=== PATIENT | female | born 1970 | race Caucasian/White ===

== ENCOUNTER 2017-08-10 18:11 | Emergency (ER) | payer OTHER ==
[2017-08-10 18:27] VITALS: BP 101/61
--- NOTE | 2017-08-10 20:01 | UC ---
Shoulder Pain HPI - HPI Summary HPI Summary: patient states she came from Dr. Stokes's office for evaluation of left shoulder pain. She was scheduled to have an MRI of the shoulder. Left shoulder pain started 3 weeks ago after she was lifting weights. Pain is in shoulder radiating to chest, elbow and now 4th and 5th digits. She denies fall or trauma. States she has had c2-c3 spine fusion surgery in the past and has constant pain on shoulders bilaterally for many years. She states she came to because she had not noticed a bulging in her left elbow and feels it is connected with tingling sensation of her fingers. She dislikes taking NSAIDS due to gastric side effects so she has not taken any pain medication. - History of Current Complaint Chief Complaint: UCUpperExtremity Stated Complaint: ELBOW SWELLING,FINGERS OF L HAND NUMB Time Seen by Provider: 08/10/17 18:43 Hx Obtained From: Patient Hx Last Menstrual Period: 2014 ?: No Onset/Duration: Gradual Onset, Lasting Weeks Timing: Constant Severity Initially: Moderate Severity Currently: Moderate Pain Intensity: 7 Character: Aching Aggravating Factor(s): Movement, Lifting Alleviating Factor(s): Rest, Elevation Associated Signs And Symptoms: Positive: Negative - Risk Factors Non-Orthopedic Risk Factor: Negative DVT Risk Factors: Smoking Septic Arthritis Risk Factor: Negative - Allergies/Home Medications Allergies/Adverse Reactions: Allergies Allergy/AdvReac Type Severity Reaction Status Date / Time erythromycin base Allergy Diarrhea Verified 08/10/17 18:28 PMH/Surg Hx/FS Hx/Imm Hx Previously Healthy: Yes - Surgical History Surgical History: Yes Surgery Procedure, Year, and Place: antierior fusion of c2-c3 1999. BACK SURGERY-2013 - Family History Known Family History: Positive: None - Social History Alcohol Use: Occasionally Substance Use Type: None Smoking Status (MU): Heavy Every Day Tobacco Smoker Amount Used/How Often: 1/2 PPD Review of Systems Musculoskeletal: Arthralgia All Other Systems Reviewed And Are Negative: Yes Physical Exam Triage Information Reviewed: Yes Appearance: Well-Appearing, No Pain Distress Vital Signs: Initial Vital Signs Temp 98.0 F 08/10/17 18:23 Pulse 86 08/10/17 18:23 Resp 12 08/10/17 18:23 BP 101/61 08/10/17 18:23 Pulse Ox 97 08/10/17 18:23 Vital Signs Reviewed: Yes Eyes: Positive: Conjunctiva Clear ENT: Positive: Hearing grossly normal Neck: Positive: Supple, Nontender, No Lymphadenopathy Respiratory: Positive: Chest non-tender, Lungs clear, Normal breath sounds, No respiratory distress Cardiovascular: Positive: RRR, No Murmur, Pulses Normal, Brisk Capillary Refill Abdomen Description: Positive: Nontender Musculoskeletal: Positive: No Edema, Other: - empty can test positive, Gil positive, left shoulder. tender on medial epycondyle of left arm. Supraspinatus positive. Neck has ROM preserved, spurling test negative Neurological: Positive: Muscle Tone Normal Shoulder Course/Dx - Course Course Of Treatment: patient with possible epicondylitis of left elbow, follow up with orthopedic surgery and PCP for follow up management. EKG was NSR, no ST- T wave changes. Discussed with patient smoking cessation - Differential Dx/Diagnosis Provider Diagnoses: Left shoulder pain. Left medial epicondylitis. Tobacco abuse Discharge - Sign-Out/Discharge Documenting (check all that apply): Discharge - Discharge Plan Condition: Stable Disposition: HOME Prescriptions: Gabapentin CAP(*) [Neurontin 100 mg CAP(*)] 100 mg PO TID #60 cap tiZANidine TAB* [Zanaflex TAB*] 2 mg PO BEDTIME PRN #30 tab PRN Reason: Pain Patient Education Materials: Gabapentin (By mouth), Tizanidine (By mouth), How to Stop Smoking (ED), Rotator Cuff Injury (ED) Referrals: Jerome Mendieta MD [Primary Care Provider] - Additional Instructions: discussed with patient, she states she started with chest pain the moment she lifted weights and it has been achy, constant and consistent. Instructed patient to go to ED if nature of CP changes, if diaphoresis, dizziness, Nausea vomiting or different irradiation start. To f/u with Orthopaedic surgery for MRI left shoulder and f/u with PCP. - Billing Disposition and Condition Condition: STABLE Disposition: HOME
== END 2017-08-10 19:58 | disposition home or self-care (01) ==
LOC: UCEAST 18:11
DX: M25.512 Pain in left shoulder (principal); M77.02 Medial epicondylitis, left elbow; Z88.1 Allergy status to other antibiotic agents; F17.210 Nicotine dependence, cigarettes, uncomplicated
CPT/HCPCS: 93005; 99212; G0463

== ENCOUNTER 2018-10-13 11:40 | Emergency (ER) | payer SELFPAY ==
[2018-10-13 11:49] VITALS: BP 99/54
[2018-10-13] MEDS ORDERED: HYDROcodone/ACETAMIN 5-325 MG* 1 TAB PO ONE (12:08)
[2018-10-13] MEDS ORDERED: Ondansetron ODT TAB* 4 MG PO ONE (12:09)
--- NOTE | 2018-10-13 12:44 | UC ---
Lower Extremity/Ankle HPI - HPI Summary HPI Summary: Injured right ankle doing garden work--wearing sandals, tugging full weight to pull a vine out of a tree, fell backwards and heard a pop. Immediate pain and swelling with inability to weight bear. Blacked out for a few moments. - History of Current Complaint Chief Complaint: UCLowerExtremity Stated Complaint: RT ANKLE INJURY Time Seen by Provider: 10/13/18 12:08 Hx Obtained From: Patient, Family/Skilled Laborer - here with spouse Hx Last Menstrual Period: 2014 Onset/Duration: Sudden Onset, Lasting Hours Pain Intensity: 10 Aggravating Factor(s): Standing - cannot weight bear Alleviating Factor(s): Elevation, Ice Able to Bear Weight: No - Risk Factors Gout Risk Factors: Negative DVT Risk Factors: Negative Septic Arthritis Risk Factor: Negative - Allergies/Home Medications Allergies/Adverse Reactions: Allergies Allergy/AdvReac Type Severity Reaction Status Date / Time erythromycin base Allergy Diarrhea Verified 10/13/18 11:49 Home Medications: Home Medications raNITIdine HCl [Heartburn Relief] 1 tab PO DAILY 10/13/18 [History Confirmed 01/23] PMH/Surg Hx/FS Hx/Imm Hx Previously Healthy: Yes Neurological History: Other - history of cervical spine injury - Surgical History Surgical History: Yes Surgery Procedure, Year, and Place: antierior fusion of c2-c3 1999. 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 Lives: With Family Alcohol Use: None Substance Use Type: None Smoking Status (MU): Heavy Every Day Tobacco Smoker Amount Used/How Often: 1/2 PPD Household Exposure Type: Cigarettes Review of Systems All Other Systems Reviewed And Are Negative: Yes Neurovascular: Positive: Decreased Sensation - right foot Musculoskeletal: Positive: Arthralgia Is Patient Immunocompromised?: No Physical Exam Triage Information Reviewed: Yes Appearance: Well-Appearing, Pain Distress - moderately severe Vital Signs: Initial Vital Signs Temp 96.5 F 10/13/18 11:45 Pulse 75 10/13/18 11:45 Resp 18 10/13/18 11:45 BP 99/54 10/13/18 11:45 Pulse Ox 100 10/13/18 11:45 Eye Exam: Normal Respiratory: Positive: Lungs clear, Normal breath sounds Cardiovascular: Positive: RRR, No Murmur Musculoskeletal Exam: Other - right ankle with tense moderate swelling both lateral and medial malleoli, with severe decreased range of motion of the right ankle. Neurological: Positive: Alert, Muscle Tone Normal Psychological Exam: Normal - Initially tearful and anxious. Skin Exam: Normal Diagnostics - Radiology No standard instances Radiology Interpretation Completed By: Radiologist - Dr. Tran: displaced bimalleolar fracture. Lower Extremity Course/Dx - Course Course Of Treatment: splint, crutches, analgesics with follow up tomorrow by Dr. Palacio. Splinting done by Rivka Banda. - Differential Dx/Diagnosis Differential Diagnosis/HQI/PQRI: Fracture (Closed), Sprain Provider Diagnosis: Bimalleolar fracture of right ankle - Physician Notifications Discussed Patient Care With: Clara Palacio - communication via SARA Landin Discharge - Sign-Out/Discharge Documenting (check all that apply): Patient Departure All imaging exams completed and their final reports reviewed: Yes - Discharge Plan Condition: Fair Disposition: HOME Prescriptions: Hydrocodone/Acetaminophen [Hydrocodone-Acetamin 5-325 mg] 2 each PO Q6H PRN #20 tablet MDD 8 PRN Reason: Pain - Moderate To Severe Patient Education Materials: Ankle Fracture (ED), Crutch Instructions (ED) Referrals: Jerome Mendieta MD [Primary Care Provider] - Clara Palacio MD [Medical Doctor] - Additional Instructions: Use Crutches and maintain non-weight bearing. Keep your leg elevated and use ice regularly to decrease swelling. Call Dr. Palacio in the morning to arrange an evaluation of the ankle. Use ibuprofen 800mg three times daily with food for relief of pain, using additional hydrocodone 1 to 2 tablets as needed for pain control. - Billing Disposition and Condition Condition: FAIR Disposition: Home
== END 2018-10-13 13:59 | disposition home or self-care (01) ==
LOC: UCEAST 11:40
DX: S82.841A Displaced bimalleolar fracture of right lower leg, initial encounter for closed fracture (principal); X58.XXXA Exposure to other specified factors, initial encounter; Y93.H2 Activity, gardening and landscaping; Y92.017 Garden or yard in single-family (private) house as the place of occurrence of the external cause; Y99.8 Other external cause status; F17.210 Nicotine dependence, cigarettes, uncomplicated; Z98.1 Arthrodesis status
CPT/HCPCS: 99213; A9270-GY; G0463

== ENCOUNTER 2018-10-17 09:30 | Day surgery (SDC) | payer SELFPAY ==
[~2018-10-17 09:30] MED LIST: Acetaminophen TAB* 325 MG PO ONE; Buffered Lidocaine 1% SYRIN* 1 ML/SYRINGE INTRADERM ONE; Gabapentin CAP(*) 300 MG PO ONE; Lactated Ringers 1000 ML Bag* 1,000 ML IV SCH
[2018-10-17] MEDS ORDERED: Gabapentin CAP(*) 300 MG ONE (09:53)
[2018-10-17] MEDS ORDERED: ceFAZolin 2 GM PREMIX in ORs 2 GM/50 ML BAG ONE (09:53)
[2018-10-17] MEDS ORDERED: Acetaminophen TAB* 325 MG ONE (09:53)
[2018-10-17] MEDS ORDERED: Buffered Lidocaine 1% SYRIN* 1 ML/SYRINGE INTRADERM ONE (09:54)
[2018-10-17] MEDS ORDERED: fentaNYL* 50 MCG/ML 2 ML VIAL (100 MCG VIAL) IV PRN (10:55)
[2018-10-17] MEDS ORDERED: Naloxone* 0.4 MG/ML 1 ML VIAL IV PRN (10:57)
[2018-10-17] MEDS ORDERED: fentaNYL* 50 MCG/ML 2 ML VIAL (100 MCG VIAL) ONE ×2 (10:57→11:41)
[2018-10-17] MEDS ORDERED: Acetaminophen TAB* 325 MG PO PRN (10:57)
[2018-10-17] MEDS ORDERED: HYDROmorphone INJ1* 1 MG/ML SYRINGE IV PRN (10:57)
[2018-10-17] MEDS ORDERED: diPHENhydraMINE IV* 50 MG/ML 1 ml VIAL (BENADRYL) IV PRN (10:57)
[2018-10-17] MEDS ORDERED: PROCHLORPERAZINE INJ 5 MG/ML 2 ML VIAL IV PRN (10:57)
[2018-10-17] MEDS ORDERED: Levalbuterol 0.63MG/3ML NEB* UNIT OF USE INH PRN (10:57)
[2018-10-17] MEDS ORDERED: DiMENhydriNATE IV* 50 MG/ML VIAL IV PUSH PRN (10:57)
[2018-10-17] MEDS ORDERED: HYDROcodone/ACETAMIN 5-325 MG* 1 TAB PO PRN ×2 (10:57)
[2018-10-17] MEDS ORDERED: Scopolamine 1.5 mg* PATCH TRANSDERM PRN (10:57)
[2018-10-17] MEDS ORDERED: Ondansetron INJ* 2 MG/ML VIAL IV PRN (10:57)
[2018-10-17] MEDS ORDERED: Midazolam* 1 MG/ML 2 ML VIAL (2 MG) ONE (11:41)
[2018-10-17] MEDS ORDERED: Famotidine IV* 10 MG/ML 2 ML (20 mg) ONE (11:58)
[2018-10-17] MEDS ORDERED: Ropivacaine (OR use only) 2 MG/ML 10 ML ONE (11:59)
[2018-10-17] MEDS ORDERED: ROPIVACAINE 5 MG/ML 30 ML BTL (0.5%) ONE (11:59)
[2018-10-17] MEDS ORDERED: Bupivacaine 0.25% SDV PF* 10 ML VIAL INJ ONE ×2 (12:07→13:44)
[2018-10-17] MEDS ORDERED: Ondansetron INJ* 2 MG/ML VIAL ONE (12:35)
[2018-10-17] MEDS ORDERED: Propofol* 10 MG/ML 20 ML BTL ONE (12:35)
[2018-10-17] MEDS ORDERED: Lidocaine 2% PF * 5 ML VIAL ONE (12:35)
[2018-10-17] MEDS ORDERED: Scopolamine 1.5 mg* PATCH ONE (12:35)
[2018-10-17] MEDS ORDERED: Dexamethasone IV* 4 MG/ML 1 ML (4 MG) ONE (12:35)
[2018-10-17] MEDS ORDERED: Ketorolac INJ* 30 MG/ML 1 ML VIAL ONE (12:35)
[2018-10-17 15:46] VITALS: BP 123/69
--- NOTE | 2018-10-17 18:40 | OP ---
Operative Report - Blank - Operative Report Date of Operation: 10/17/18 Note: PATIENT: Niurka Tony DATE OF : 1970 DATE OF SURGERY: 10/17/2018 SURGEON: Robinson Arevalo MD SENIOR DATASTAGE DEVELOPER: SARA Geller, whos assistance was necessary for positioning, retraction, help with instrumentation, and closure. ANESTHESIOLOGIST: Dr. Merritt PREOPERATIVE DIAGNOSIS: Right trimalleolar ankle fracture POSTOPERATIVE DIAGNOSIS: Right trimalleolar ankle fracture OPERATION: 1. Right trimalleolar ankle fracture open reduction and internal fixation of medial and lateral malleoli. 2. Stress views performed by surgeon utilizing fluoroscopy under anesthesia. ANESTHESIA: General + nerve block IMPLANTS: Arthrex ankle fracture set plate and screws TOURNIQUET TIME: Less than 2 hours with a well-padded thigh tourniquet at 250mmHg SPECIMENS: none ESTIMATED BLOOD LOSS: minimal COMPLICATIONS: none STATUS: Stable from the operating room to the recovery room and then home. INDICATIONS FOR PROCEDURE: Niurka sustained a right trimalleolar ankle fracture with displacement. CT scan revealed comminution of both the distal fibula fractures, as well as at the medial malleolus. Both operative and non operative treatment alternatives were reviewed. Further, the nature and risks of surgery were reviewed in careful detail, in the office as well as the pre-operative holding area. Our discussions regarding the risks of surgery included, but were not limited to, infection, wound problems, nerve injury, neuroma, RSD, persistent symptoms, blood clot, nonunion, malunion, post-traumatic arthritis, hardware failure, failure of the surgery, and even the remote chance of catastrophic complication , including loss of limb. DESCRIPTION OF PROCEDURE: The patient was seen in the preoperative holding unit and informed written consent was obtained. The appropriate extremity was marked. The patient was then brought to the operating room and carefully positioned on the operating room table. Anesthesia was induced. All bony prominences were padded with great care. A well-padded thigh tourniquet was placed. A chlorhexidine based pre- scrub was performed followed by a chloraprep prep and drape in standard sterile fashion. A surgical safety pause was then conducted in which we confirmed the appropriate patient, extremity, planned procedure, availability of equipment, indication and administration of prophylactic antibiotics, and DVT prophylaxis in the form of a compression boot on the non-surgical extremity. I began with Esmarch exsanguination of the limb and inflated the tourniquet. I then utilized a laterally based incision overlying the distal fibula. Great care was taken to protect the superficial peroneal nerve, which was not visualized within the field of view. I dissected down through the soft tissue layers to expose the distal fibula. I then exposed the fracture planes. Fracture hematoma was removed. I gained a reduction utilizing a pointed reduction clamp. I placed an Arthrex anatomic distal fibula plate laterally and then confirmed the reduction and the position of the plate fluoroscopically. I placed screws to hold the plate to the bone. The provisional fixation was removed and then I again confirmed fluoroscopically the appropriate position of the plate and screw lengths. There is a large butterfly fragment that I was unable to capture with the screws. I used #1 Vicryl in a cerclage fashion to suture this to the remaining fibula. At this point, I provisionally tacked the lateral incision closed while I turned my attention medially. I made an approximately 8cm incision over the medial malleolus. The fractures were exposed and hematoma was removed. There is extensive comminution, especially at the anterior shoulder of the ankle joint. A few small pieces of bone and cartilage were removed from inside the joint. Reduction of the medial malleolar fractures were obtained with a pointed reduction clamp and K wires. I placed guidewires for 4.0 mm cannulated screws. I confirmed the position of the guidewires fluoroscopically. I then overdrilled one of the wires and placed a partially threaded 4.0 mm cannulated screw. Because of the blowout at the medial wall, I then placed a buttress plate that was contoured to the medial malleolus. I held this to the bone with 3.5 mm cortical screws. This held the fractures nicely reduced. At this point, I performed a stress fluoroscopic examination. I utilized a Cotton test, as well as an external rotation stress test, to evaluate the distal tib-fib syndesmosis. There was no instability appreciated through the syndesmosis. I also performed a posteriorly directed stress test and there was no posterior instability appreciated, so I elected to treat the posterior malleolar fracture in a closed manner. At this point, we irrigated copiously and then closed in layers meticulously utilizing 3-0 Monocryl for the deep and subdermal layers and 3-0 nylon for the skin. A sterile dressing was then applied followed by a splint with the ankle in a neutral position. The patient was then awakened from anesthesia and transferred to the recovery room in stable condition. There were no complications. All needle and sponge counts were correct at the end of the case. ATTESTATION: I attest I was present and scrubbed and performed the critical portions of the procedure myself. POSTOPERATIVE PLAN: The postop plan is for [id number] for an anticipated duration of 6 weeks. Follow-up will be in 2 weeks. At that time we will likely transition into a short-leg cast.
[2018-10-20] MEDS ORDERED: Scopolamine PATCH Remove* 1 NOTE MISC PATCH OFF ONE (10:58)
== END 2018-10-17 16:09 | disposition home or self-care (01) ==
LOC: OR 09:30
PROVIDERS: ATTEND Orthopaedic Surgery
DX: S82.851A Displaced trimalleolar fracture of right lower leg, initial encounter for closed fracture (principal); G89.18 Other acute postprocedural pain; F17.210 Nicotine dependence, cigarettes, uncomplicated; K21.9 Gastro-esophageal reflux disease without esophagitis; E03.9 Hypothyroidism, unspecified; W19.XXXA Unspecified fall, initial encounter; Y92.9 Unspecified place or not applicable
CPT/HCPCS: 76000; A9270-GY; C1713; J0690; J1100; J1885; J2250; J2405; J2704; J2795; J3010; J3490

== ENCOUNTER 2018-10-24 13:46 | Emergency (ER) | payer SELFPAY ==
[2018-10-24] MEDS ORDERED: Morphine 10 MG/ML VIAL (1 ml) IV ONE (13:52)
--- NOTE | 2018-10-24 13:53 | UC ---
General HPI - HPI Summary HPI Summary: Here with - acute onset of right sided chest pain and SOB Had surgery on right foot for three fx by Dr. Zepeda 1 week ago. Has been doing relatively well. Weaning herself off the narcotics. DId not take any last night. Was having issues with constipation . Had a BM this AM, feeling pretty well when she became acutely SOB with right sided chest pain. drove her here to urgent care for further evaluation Been nausea since surgery. Diarrhea this AM. States she also noticed worsening numbness in RLE. Was having numbness all along that ortho was aware of but this numbess was worse. PMHx: None Is a smoker. NOt sure if she is taking aspirin. Not on her med rec. - History of Current Complaint Stated Complaint: L LEG PAIN Time Seen by Provider: 10/24/18 13:51 Hx Last Menstrual Period: 2014 - Allergy/Home Medications Allergies/Adverse Reactions: Allergies Allergy/AdvReac Type Severity Reaction Status Date / Time erythromycin base Allergy Severe Diarrhea, Verified 10/24/18 14:02 vomit PMH/Surg Hx/FS Hx/Imm Hx Previously Healthy: Yes - Surgical History Surgical History: Yes Surgery Procedure, Year, and Place: anterior fusion of C2-C3 1999. laminectomy BACK SURGERY-2013 - Family History Known Family History: Positive: None - Social History Alcohol Use: None Substance Use Type: None Smoking Status (MU): Heavy Every Day Tobacco Smoker Amount Used/How Often: 1/2-3/4 PPD 30 years off and on Household Exposure Type: Cigarettes Review of Systems All Other Systems Reviewed And Are Negative: Yes Respiratory: Positive: Shortness Of Breath Cardiovascular: Positive: Palpitations, Chest Pain Physical Exam Triage Information Reviewed: Yes Appearance: Ill-Appearing Vital Signs Reviewed: Yes ENT: Positive: Normal ENT inspection Neck: Positive: Nontender Respiratory: Positive: Lungs clear, Normal breath sounds, Other: - diminished breath sounds Cardiovascular: Positive: RRR, Other: - soft systolic murmur Abdomen Description: Positive: Nontender Musculoskeletal: Positive: Other: - wrap and splint on RLE - able to move toes, sensation intact Diagnostics - EKG Cardiac Rate: NL Course/Dx - Course Course Of Treatment: This is a 48 yr old who is post op 10/17 from RLE ankle repair who presents with acute onset of SOB and CP EKG: Nonspecifc twave flattening NSR ASA 324 mg PO x 1 Morphine 2 mg iV x 1 Patient vital's stable Patient being transported to [facility] ED via [place] Sign out given to Elisa at [facility] ED - Diagnoses Provider Diagnosis: Chest pain Discharge - Sign-Out/Discharge Documenting (check all that apply): Patient Departure All imaging exams completed and their final reports reviewed: No Studies - Discharge Plan Condition: Fair Disposition: TRANS HIGHER LVL OF CARE FAC Referrals: Jerome Mendieta MD [Primary Care Provider] - Additional Instructions: Patient being transported directly to [facility] ED via EMS - Billing Disposition and Condition Condition: FAIR Disposition: Trans Higher Lvl of Care Fac
[2018-10-24] MEDS ORDERED: Aspirin 81 mg CHEW TAB* 81 MG TAB.CHEW PO ONE (14:00)
[2018-10-24 14:02] VITALS: BP 129/70
== END 2018-10-24 14:12 | disposition short-term general hospital (02) ==
LOC: UCEAST 13:46
DX: R07.9 Chest pain, unspecified (principal); F17.210 Nicotine dependence, cigarettes, uncomplicated; F11.20 Opioid dependence, uncomplicated
CPT/HCPCS: 93005; 96374; 99213; A9270-GY; G0463; J2270

== ENCOUNTER → 2018-10-24 14:32 | Emergency (ER) | payer SELFPAY ==
[~2018-10-24 14:32] MED LIST changes: -Acetaminophen TAB* 325 MG PO ONE; -Buffered Lidocaine 1% SYRIN* 1 ML/SYRINGE INTRADERM ONE; -Gabapentin CAP(*) 300 MG PO ONE; +Iohexol 350* (CONTRAST) 500 ML MDV IV ONE; -Lactated Ringers 1000 ML Bag* 1,000 ML IV SCH
[2018-10-24 14:58] LABS: ABS Basophils 0.1 10^3/ul (0-0.2); ABS Eosinophils 0.2 10^3/ul (0-0.6); ABS Lymphocytes 1.7 10^3/ul (1.0-4.8); ABS Monocytes 0.7 10^3/ul (0-0.8); ABS Neutrophils 8.6 10^3/ul (1.5-7.7); Eosinophil % 1.6 %; Hematocrit 40 % (35-47); Hemoglobin 13.9 g/dL (12.0-16.0); Lymphocyte % 15.4 %; Mean Corpuscular HGB Conc 35 g/dL (31-36); Mean Corpuscular Hemoglobin 32 pg (27-31); Mean Corpuscular Volume 91 fL (80-97); Mean Platelet Volume 7.7 fL (7.4-10.4); Platelet Count 287 10^3/uL (150-450); Red Blood Count 4.41 10^6 /uL (3.70-4.87); Red Cell Distribution Width 13 % (10-15); White Blood Count 11.3 10^3/uL (3.5-10.8)
[2018-10-24 15:15] LABS: Albumin 3.9 g/dL (3.2-5.2); Albumin/Globulin Ratio 1.4 (1-3); Calcium 9.4 mg/dL (8.6-10.3); EGFR African American 91.9 (>60); EGFR Non-African American 75.9 (>60); Globulin 2.8 g/dL (2-4); Potassium 3.9 mmol/L (3.5-5.0); Total Bilirubin 0.6 mg/dL (0.2-1.0); Total Protein 6.7 g/dL (6.4-8.9)
--- NOTE | 2018-10-24 16:22 | ED ---
HPI Chest Pain - HPI Summary HPI Summary: The patient is a 48 y/o F presenting to [facility] from Urgent Care accompanied by with a chief complaint of pain, tingling, and a burning sensation in the RLE with gradual worsening over the last week and new onset of dull CP today. She reports that she had surgery at [facility] one week ago on the right ankle with placement of plates for a triple fracture after falling while removing anika from a tree. Over the last week, she has had gradual worsening of tingling throughout the leg and foot on the right and occasionally in the left, and a burning sensation near the toes with possible leakage and bruising on the leg. She has been told to leave the dressing and wrapping on the foot until her follow up appointment on 11/01, and she has tried to call the orthopedic office to move the appointment or be evaluated sooner, but she was told to wait for the scheduled appointment, not apply pressure to the ankle for six weeks, and keep the ankle elevated as much as possible with icing for minimizing swelling. Currently, her pain is rated 6/10 in severity. Her symptoms are aggravated by movement despite taking Oxycodone for the pain. She also uses marijuana for pain. She additionally c/o there is intermittent numbness in the right hand. She denies fever, chills, erythema of eyes, sore throat, SOB, cough, abdominal pain, N/V, dysuria, hematuria, edema, rash, and dizziness. Hx of arthritis. Surgical hx of fusion of C2-C3 and laminectomy without complications. Current heavy everyday smoker, no EtOH, marijuana use. - History of Current Complaint Chief Complaint: EDChestPainROMI Time Seen by Provider: 10/24/18 14:38 Hx Obtained From: Patient Hx Last Menstrual Period: 2014 Onset/Duration: Started Days Ago - one week, Still Present Timing: Lasting Days Initial Severity: Mild Current Severity: Moderate Pain Intensity: 6 Pain Scale Used: 0-10 Numeric Chest Pain Location: Diffuse Chest Pain Radiates: No Character: Dull/Aching Aggravating Factor(s): Movement Alleviating Factor(s): Nothing Associated Signs and Symptoms: Positive: Chest Pain, Numbness - in right hand, Tingling - in RLE and occasionally LLE, Other: - RLE pain, bruising in the right leg, burning sensation of right foot, possible leakage at surgical site; NEGATIVE: erythema of eyes, sore throat, dysuria, hematuria, edema, rash. Negative: Dizziness, Shortness of Breath, Fever, Chills, Nausea, Cough, Abdominal Pain, Vomiting - Allergy/Home Medications Allergies/Adverse Reactions: Allergies Allergy/AdvReac Type Severity Reaction Status Date / Time erythromycin base Allergy Severe Diarrhea, Verified 10/24/18 14:02 vomit PMH/Surg Hx/FS Hx/Imm Hx Endocrine/Hematology History: Denies: Hx Diabetes, Hx Thyroid Disease Cardiovascular History: Denies: Hx Hypertension Respiratory History: Denies: Hx Asthma, Hx Chronic Obstructive Pulmonary Disease (COPD) GI History: Reports: Hx Gastroesophageal Reflux Disease Denies: Hx Ulcer Musculoskeletal History: Reports: Hx Arthritis Sensory History: Reports: Hx Contacts or Glasses - glasses for reading or driving Denies: Hx Hearing Aid Opthamlomology History: Reports: Hx Contacts or Glasses - glasses for reading or driving - Cancer History Hx Chemotherapy: No - Surgical History Surgery Procedure, Year, and Place: anterior fusion of C2-C3 1999. laminectomy BACK SURGERY-2013 Hx Anesthesia Reactions: No Infectious Disease History: No Infectious Disease History: Denies: Hx Clostridium Difficile, Hx Hepatitis, Hx Human Immunodeficiency Virus (HIV), Hx of Known/Suspected MRSA, Hx Shingles, Hx Tuberculosis, Hx Known/ Suspected VRE, Traveled Outside the [place] in Last 30 Days - Family History Known Family History: Positive: Other - alcoholism - Social History Alcohol Use: None Hx Substance Use: Yes Substance Use Type: Reports: Marijuana Hx Tobacco Use: Yes Smoking Status (MU): Heavy Every Day Tobacco Smoker Amount Used/How Often: 1/2-3/4 PPD 30 years off and on Review of Systems Negative: Fever, Chills Negative: Erythema Negative: Sore Throat Positive: Chest Pain Negative: Shortness Of Breath, Cough Negative: Abdominal Pain, Vomiting, Nausea Negative: dysuria, hematuria Positive: Myalgia - RLE pain. Negative: Edema Positive: Bruising - RLE near surgical dressing, Other - possible leakage at surgical site. Negative: Rash Neurological: Other - POSITIVE: burning sensation on right foot; NEGATIVE: dizziness Positive: Paresthesia - mostly RLE but occasionally LLE, Numbness - in right foot All Other Systems Reviewed And Are Negative: Yes Physical Exam - Summary Physical Exam Summary: Constitutional: Well-developed, Well-nourished, Alert. (-) Distressed Skin: Warm, Dry HENT: Normocephalic; Atraumatic Eyes: Conjunctiva normal Neck: Musculoskeletal ROM normal neck. (-) JVD, (-) Stridor, (-) Tracheal deviation Cardio: Rhythm regular, rate normal, Heart sounds normal; Intact distal pulses; The pedal pulses are 2+ and symmetric. Radial pulses are 2+ and symmetric. (-) Murmur Pulmonary/Chest wall: Effort normal. (-) Respiratory distress, (-) Wheezes, (-) Rales Abd: Soft, (-) tenderness, (-) Distension, (-) Guarding, (-) Rebound Musculoskeletal: Movement of the toes is completely intact, Dorsalis pedis pusles intact, Skin perfusion normal, No significant edema Lymph: (-) Cervical adenopathy Neuro: Alert, Oriented x3 Psych: Mood and affect Normal Triage Information Reviewed: Yes Vital Signs On Initial Exam: Initial Vitals Temp Pulse Resp BP Pulse Ox 97.4 F 77 18 136/71 98 10/24/18 14:34 10/24/18 14:34 10/24/18 14:34 10/24/18 14:34 10/24/18 14:34 Vital Signs Reviewed: Yes Diagnostics - Vital Signs Vital Signs Temp Pulse Resp BP Pulse Ox 10/24/18 15:42 69 14 103/64 96 10/24/18 15:12 72 17 121/67 92 10/24/18 15:00 68 20 94 10/24/18 14:42 79 25 136/71 99 10/24/18 14:41 78 17 98 10/24/18 14:34 97.4 F 77 18 136/71 98 - Laboratory Lab Results: Lab Results 10/24/18 10/24/18 10/24/18 Range/Units 14:52 14:52 14:52 WBC 11.3 H (3.5-10.8) 10^3/uL RBC 4.41 (3.70-4.87) 10^6 /uL Hgb 13.9 (12.0-16.0) g/dL Hct 40 (35-47) % MCV 91 (80-97) fL MCH 32 H (27-31) pg MCHC 35 (31-36) g/dL RDW 13 (10-15) % Plt Count 287 (150-450) 10^3/uL MPV 7.7 (7.4-10.4) fL Neut % (Auto) 76.5 % Lymph % (Auto) 15.4 % [place] % (Auto) 5.9 % Eos % (Auto) 1.6 % Baso % (Auto) 0.6 % Absolute Neuts (auto) 8.6 H (1.5-7.7) 10^3/ul Absolute Lymphs (auto) 1.7 (1.0-4.8) 10^3/ul Absolute Monos (auto) 0.7 (0-0.8) 10^3/ul Absolute Eos (auto) 0.2 (0-0.6) 10^3/ul Absolute Basos (auto) 0.1 (0-0.2) 10^3/ul Absolute Nucleated RBC 0.0 10^3/ul Nucleated RBC % 0.0 Sodium 139 (135-145) mmol/L Potassium 3.9 (3.5-5.0) mmol/L Chloride 107 (101-111) mmol/L Carbon Dioxide 23 (22-32) mmol/L Anion Gap 9 (2-11) mmol/L BUN 24 (6-24) mg/dL Creatinine 0.80 (0.51-0.95) mg/dL Est GFR ( Amer) 91.9 (>60) Est GFR (Non-Af Amer) 75.9 (>60) BUN/Creatinine Ratio 30.0 H (8-20) Glucose 119 H (70-100) mg/dL Lactic Acid 1.1 (0.5-2.0) mmol/L Calcium 9.4 (8.6-10.3) mg/dL Total Bilirubin 0.60 (0.2-1.0) mg/dL AST 18 (13-39) U/L ALT 27 (7-52) U/L Alkaline Phosphatase 117 H (34-104) U/L Troponin I 0.00 (<0.04) ng/mL Total Protein 6.7 (6.4-8.9) g/dL Albumin 3.9 (3.2-5.2) g/dL Globulin 2.8 (2-4) g/dL Albumin/Globulin Ratio 1.4 (1-3) Result Diagrams: 10/24/18 14:52 10/24/18 14:52 Lab Statement: Any lab studies that have been ordered have been reviewed, and results considered in the medical decision making process. - Radiology CXR Radiology Interpretation Completed By: Radiologist Summary of Radiographic Findings: No evidence for acute intrathoracic disease. ED physician has reviewed this radiology report. - CT Chest/Thorax CTA CT Interpretation Completed By: Radiologist Summary of CT Findings: 1. No CT of evidence of pulmonary embolism. 2. There is a small amount of pleural base atelectasis at the posterior dependent right lower lobe. 3. Chronic findings are consistent with emphysema. - EKG 1446 Cardiac Rate: NL - 70 BPM EKG Rhythm: Sinus Rhythm Summary of EKG Findings: No STEMI. Re-Evaluation - Re-Evaluation First Eval Re-Evaluation Time: 17:50 Comment: The patient is still experiencing pain. Second Eval Re-Evaluation Time: 18:35 Change: Improved Comment: The patient's CP has completely resolved. We discussed discharge and follow up with orthopedics. Chest Pain Course/Dx - Course Assessment/Plan: The patient is a 48 y/o F presenting to [facility] from Urgent Care accompanied by with a chief complaint of pain, tingling, and a burning sensation in the RLE with gradual worsening over the last week and new onset of dull CP today. She reports that she had surgery at [facility] [place] one week ago on the right ankle with placement of plates for a triple fracture. Over the last week, she has had gradual worsening of tingling throughout the leg and foot on the right and occasionally in the left, and a burning sensation near the toes with possible leakage and bruising on the leg. She has been told to leave the dressing and wrapping on the foot until her follow up appointment on 11/01. She has been unable to move her appointment. Shes been advised to not apply pressure to the ankle for six weeks, and keep the ankle elevated as much as possible with icing for minimizing swelling. Symptoms aggravated by movement. Shes been using Oxycodone and marijuana for pain relief. She denies fever, chills, erythema of eyes, sore throat, SOB, cough, abdominal pain, N/V, dysuria , hematuria, edema, rash, and dizziness. Hx of arthritis. Surgical hx of fusion of C2-C3 and laminectomy without complications. Current heavy everyday smoker, no EtOH, marijuana use. Upon physical exam, the patient exhibits splint and heavy wrapping on the RLE, movement of the toes is completely intact, dorsalis pedis pulses intact, skin perfusion normal, and no significant edema. In the ED course the patient was administered Omnipaque for CTA. Bloodwork shows WBC of 11.3, MCH of 32, abs neuts of 8.6, BUN/creatinine ratio of 30.0, glucose of 119 , alkaline phosphatatse of 117. First troponin of 0.00. Second troponin of 0.00. EKG shows no acute changes. CXR shows no evidence for acute intrathoracic disease. Chest/Thorax CTA Impression: 1. No CT of evidence of pulmonary embolism. 2. There is a small amount of pleural base atelectasis at the posterior dependent right lower lobe. 3. Chronic findings are consistent with emphysema. I discussed the patient's attempt to have an appointment sooner with Dr. Palacio, orthopedics. HI and PE are ruled out based upon labwork and imaging results. The patient is diagnosed with postoperative numbness and chest pain, unspecified. The patient is instructed to follow up with orthopedics when they call her about rescheduling an appointment tomorrow. She agrees with this plan and understands the need for return to the emergency department for any new or worsening symptoms. - Diagnoses Provider Diagnoses: Postoperative numbness, Chest pain, unspecified - Provider Notifications Discussed Care Of Patient With: lCara Palacio - orthopedics Time Discussed With Above Provider: 18:00 Instructed by Provider To: Other - Dr. Palacio reports that orthopedics will follow up with her tomorrow to reschedule the appointment. Discharge - Sign-Out/Discharge Documenting (check all that apply): Patient Departure - Patient will be discharged home. Patient Received Moderate/Deep Sedation with Procedure: No - Discharge Plan Condition: Stable Disposition: HOME Patient Education Materials: Chest Pain (DC), Pain Management After Surgery (DC ) Referrals: Clara Palacio MD [Medical Doctor] - 1 Day Jerome Mendieta MD [Primary Care Provider] - Additional Instructions: Orthopedics will call you tomorrow to schedule a new appointment. RETURN TO THE EMERGENCY DEPARTMENT FOR ANY NEW OR WORSENING SYMPTOMS. - Billing Disposition and Condition Condition: STABLE Disposition: Home - Attestation Statements Document Initiated by Scribe: Yes Documenting Scribe: Lucretia Noble Provider For Whom Scribe is Documenting (Include Credential): Dr. Enrique Bean MD Scribe Attestation: I, Lucretia Noble, scribed for Dr. Enrique Bean MD on 10/24/18 at 2114. Status of Scribe Document: Ready
[2018-10-24 19:01] VITALS: BP 118/69
== END | disposition home or self-care (01) ==
LOC: ED 14:32
DX: R20.0 Anesthesia of skin (principal); R07.9 Chest pain, unspecified; F17.210 Nicotine dependence, cigarettes, uncomplicated
CPT/HCPCS: 36415; 71045; 71275; 80053; 83605; 84484; 85025; 93005; 99284; Q9967